=== PATIENT | female | born 1985 | race Two or more races ===

== ENCOUNTER 2025-01-30 17:30 | Outpatient (CLI) | payer MEDICAID, SELFPAY ==
[2025-01-30] VITALS (12 sets, daily range): BP systolic 111–124; BP diastolic 75–79; PULSE 83–94; RESP 18–98; TEMP 36.9; O2SAT 96–98; BMI 41.1
== END 2025-01-30 18:35 | disposition home or self-care (01) ==
LOC: S4S1 17:48 → S4SX 17:59
PROVIDERS: Referring Provider Obstetrics & Gynecology; Visit Provider Obstetrics & Gynecology
DX: Z34.83 Encounter for supervision of other normal pregnancy, third trimester (principal); Z36.89 Encounter for other specified antenatal screening; Z3A.36 36 weeks gestation of pregnancy
CPT/HCPCS: 59025

== ENCOUNTER 2025-02-10 08:47 | Outpatient (RCR) | payer MEDICAID, SELFPAY ==
--- NOTE | 2024-12-30 08:53 | XR_ITS ---
Examination: Biophysical profile, ultrasound Date and time of exam: December 30, 2024 0908 hours INDICATIONS: Diagnosis advanced maternal age, diagnosis diabetes Technique: Multiple transabdominal sonographic images of the pelvis abdomen obtained. Attention is directed to the breathing movement, gross body movement, amniotic fluid volume and tone. Findings: Amniotic fluid index 13.4 cm Total biophysical profile is 8 of 8. breathing movement is 2. Gross body movement is 2. tone is 2. Qualitative amniotic fluid volume is 2 Impression: Biophysical profile is 8 of 8.
--- NOTE | 2025-01-02 08:40 | XR_ITS ---
Examination: Biophysical profile, ultrasound Date and time of exam: January 02, 2025 0847 hours INDICATIONS: Diagnosis advanced maternal age, diagnosis gestational diabetes Technique: Multiple transabdominal sonographic images of the pelvis abdomen obtained. Attention is directed to the breathing movement, gross body movement, amniotic fluid volume and tone. Findings: Amniotic fluid index 10.5 cm Total biophysical profile is 8 of 8. breathing movement is 2. Gross body movement is 2. tone is 2. Qualitative amniotic fluid volume is 2 Impression: Biophysical profile is 8 of 8.
[2025-01-02 09:06] VITALS: BP 117/70; PULSE 84; RESP 18; TEMP 36.2
--- NOTE | 2025-01-06 08:47 | XR_ITS ---
Examination: Biophysical profile, ultrasound Date and time of exam: January 06, 2025 0857 hours INDICATIONS: Diagnosis advanced maternal age, diagnosis gestational diabetes Technique: Multiple transabdominal sonographic images of the pelvis abdomen obtained. Attention is directed to the breathing movement, gross body movement, amniotic fluid volume and tone. Findings: Amniotic fluid index 13.3 cm Total biophysical profile is 8 of 8. breathing movement is 2. Gross body movement is 2. tone is 2. Qualitative amniotic fluid volume is 2 Impression: Biophysical profile is 8 of 8.
[2025-01-06 09:20] VITALS: BP 115/70; PULSE 86; RESP 18
--- NOTE | 2025-01-09 08:44 | XR_ITS ---
Examination: Biophysical profile, ultrasound Date and time of exam: January 09, 2025 0848 hours INDICATIONS: Diagnosis gestational diabetes, diagnosis advanced maternal age complicating Technique: Multiple transabdominal sonographic images of the pelvis abdomen obtained. Attention is directed to the breathing movement, gross body movement, amniotic fluid volume and tone. Findings: Amniotic fluid index 11.1 cm Total biophysical profile is 8 of 8. breathing movement is 2. Gross body movement is 2. tone is 2. Qualitative amniotic fluid volume is 2 Impression: Biophysical profile is 8 of 8.
[2025-01-09 09:01] VITALS: BP 104/56; PULSE 90; RESP 16; TEMP 36.7
--- NOTE | 2025-01-16 08:43 | XR_ITS ---
Examination: Biophysical profile, ultrasound Date and time of exam: January 16, 2025 0853 hours INDICATIONS: Diagnosis advanced maternal age, diagnosis gestational diabetes Technique: Multiple transabdominal sonographic images of the pelvis abdomen obtained. Attention is directed to the breathing movement, gross body movement, amniotic fluid volume and tone. Findings: Amniotic fluid index 12.8 cm Total biophysical profile is 8 of 8. breathing movement is 2. Gross body movement is 2. tone is 2. Qualitative amniotic fluid volume is 2 Impression: Biophysical profile is 8 of 8.
[2025-01-16 09:26] VITALS: BP 118/83; PULSE 73; RESP 16; TEMP 36.7
--- NOTE | 2025-01-20 09:04 | XR_ITS ---
Examination: Biophysical profile, ultrasound Date and time of exam: January 20, 2025 0910 hours INDICATIONS: Diagnosis advanced maternal age, diagnosis gestational diabetes Technique: Multiple transabdominal sonographic images of the pelvis abdomen obtained. Attention is directed to the breathing movement, gross body movement, amniotic fluid volume and tone. Findings: Amniotic fluid index 11.9 cm Total biophysical profile is 8 of 8. breathing movement is 2. Gross body movement is 2. tone is 2. Qualitative amniotic fluid volume is 2 Impression: Biophysical profile is 8 of 8.
[2025-01-20 09:37] VITALS: BP 130/80; PULSE 82; RESP 16
--- NOTE | 2025-01-23 08:46 | XR_ITS ---
Examination: Biophysical profile, ultrasound Date and time of exam: January 23, 2025 0856 hours INDICATIONS: Diagnosis advanced maternal age, diagnosis gestational diabetes Technique: Multiple transabdominal sonographic images of the pelvis abdomen obtained. Attention is directed to the breathing movement, gross body movement, amniotic fluid volume and tone. Findings: Amniotic fluid index 12.4 cm Total biophysical profile is 8 of 8. breathing movement is 2. Gross body movement is 2. tone is 2. Qualitative amniotic fluid volume is 2 Impression: Biophysical profile is 8 of 8.
[2025-01-23 09:23] VITALS: BP 126/83; PULSE 81; RESP 16; TEMP 36.9
--- NOTE | 2025-01-27 09:07 | XR_ITS ---
Examination: Biophysical profile, ultrasound Date and time of exam: January 27, 2025 0920 hours INDICATIONS: Diagnosis advanced maternal age, diagnosis gestational diabetes Technique: Multiple transabdominal sonographic images of the pelvis abdomen obtained. Attention is directed to the breathing movement, gross body movement, amniotic fluid volume and tone. Findings: Amniotic fluid index 12.5 cm Total biophysical profile is 8 of 8. breathing movement is 2. Gross body movement is 2. tone is 2. Qualitative amniotic fluid volume is 2 Impression: Biophysical profile is 8 of 8.
[2025-01-27 09:51] VITALS: BP 134/94; PULSE 78; RESP 16; TEMP 36.7
[2025-01-27 11:15] LABS: Basophils # (Auto) 0.1 Thou/mm3 (0.0-0.2); Basophils % (Auto) 1 % (0-2.5); Eosinophils # (Auto) 0.2 Thou/mm3 (0.0-0.5); Eosinophils % (Auto) 2 % (0-10); Hematocrit 39.6 % (36.0-46.0); Hemoglobin 12.9 g/dL (12.0-16.0); Immature Granulocytes % (Auto) 1 % (0-0); Immature Granulocytes Auto 0.07 Thou/mm3 (0.00-0.00); Lymphocytes # (Auto) 2.8 Thou/mm3 (1.0-4.8); Lymphocytes % (Auto) 29 % (10-50); Mean Corpuscular HGB Conc 32.6 g/dl (31.0-37.0); Mean Corpuscular Hemoglobin 28.7 pg (25.0-35.0); Mean Corpuscular Volume 88 fL (80-100); Monocytes # (Auto) 1.1 Thou/mm3 (0.0-0.8); Monocytes % (Auto) 11 % (0-12); Neutrophils # (Auto) 5.4 Thou/mm3 (1.8-7.7); Neutrophils % (Auto) 56 % (37-80); Nucleated Red Blood Cell % 0 /100 WBC (0); Platelet Count 245 Thou/mm3 (140-440); RDW Standard Deviation 49.3 fL (36.4-46.3); Red Blood Count 4.49 Miln/mm3 (4.00-5.20); White Blood Count 9.6 Thou/mm3 (3.6-11.0)
[2025-01-27 11:33] LABS: Alanine Aminotransferase 15 U/L (10-49); Albumin, Serum 3.7 gm/dL (3.5-5.0); Albumin/Globulin Ratio 1.4 (1.2-2.2); Alkaline Phosphatase 118 U/L (46-116); Anion Gap 9 (7-16); Aspartate Amino Transferase 22 U/L (0-34); BUN/Creatinine Ratio 10 Ratio (12-20); Bilirubin,Total 0.2 mg/dL (0.3-1.2); Blood Urea Nitrogen 8 mg/dL (9-23); Calcium 9.5 mg/dL (8.3-10.6); Calcium (Corrected) 9.7 mg/dL (8.5-10.1); Carbon Dioxide 22.5 mMol/L (20.0-31.0); Chloride 103 mMol/L (98-107); Creatinine (Component) 0.8 mg/dL (0.6-1.3); Globulin 2.7 gm/dL (2.3-3.5); Glucose 86 mg/dL (74-106); Osmolality,Calculated 265 (275-295); Potassium 3.7 mMol/L (3.4-5.1); Sodium 134 mMol/L (136-145); Total Protein 6.4 gm/dL (5.7-8.2); eGFR > 60 See Note
[2025-01-27 11:48] LABS: Creatinine,Random Urine 61 mg/dL (30-125); Protein Total, Random Urine 11 mg/dL (1-14)
--- NOTE | 2025-01-27 12:14 | PD.LDPN ---
Documentation for date of: 01/27/25 OB Labor Progress Note Assessment and Plan Comments: Taisha is a 39yo with SIUP at 36+wk presenting to L&D for antepartum testing indicated for insulin-dependent diabetes. She notes no painful/regular ctx, no vaginal bleeding, no loss of fluid. Normal movement. No headache, vision changes, RUQ pain. She reports glucose levels have been well managed. 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 Has APFTs twice weekly. She has had regular OB care with [facility]ER[facility] Guevara and sees MFM in [place] ROS negative other than what was described above. A few diastolic bp's 90's but otherwise normotensive, afebrile General: well developed, well nourished, no acute distress, conversant Cardiac: normal heart rate Lungs: breathing without distress Abdomen: soft, gravid, non-tender, no rebound or guarding Extremities: no pain with palpation of calves NST: Reactive, +accels, no decels, mod howard [place]: no regular ctx pattern Labs: Hgb 12.9, plt 245, serum creat 0.8, AST/ALT wnl, urine p:c 0.8 BPP: Examination: Biophysical profile, ultrasound Date and time of exam: January 27, 2025 0920 hours INDICATIONS: Diagnosis advanced maternal age, diagnosis gestational diabetes Technique: Multiple transabdominal sonographic images of the pelvis abdomen obtained. Attention is directed to the breathing movement, gross body movement, amniotic fluid volume and tone. Findings: Amniotic fluid index 12.5 cm Total biophysical profile is 8 of 8. breathing movement is 2. Gross body movement is 2. tone is 2. Qualitative amniotic fluid volume is 2 Impression: Biophysical profile is 8 of 8. Assessment: Taisha is a 39yo with SIUP at 36+wk presenting to L&D for antepartum testing indicated for insulin-dependent diabetes. Reassuring status based on NST/BPP. PIH workup is negative at this time and mild range bp's resolved to normotensive. Benign exam. Plan: -Discussed reassuring findings with patient -Follow up on 01/30 for scheduled NST/BPP and will keep close eye to bp. If she has mild range bp's again at that time, would receive dx of GHTN. -Follow up with Dr. Lincoln as scheduled -Discussed return precautions. Kelsea Gomez MD
--- NOTE | 2025-01-30 18:41 | PD.LDNST ---
Documentation for date of: 01/30/25 Antepartum Testing Patient Information Reason for Test: GDM ON INSULIN, AMA EDC: 02/22/25 Gestational Age (weeks): 36 Gestational Age (days): 2 : 4 Para: 2 Date of Last Test: 01/23/25 Last Oral Intake: ATE AT 07:50 Clincal Data Temperature: 98.0 F Blood Pressure: 134/94 Respiratory Rate: 16 Pulse Rate: 78 Non-Stress Test Baseline FHR: 135 Non-Stress Test Result: Reactive Non-Stress Test Comment: PT HERE FOR SCHEDULED BPP/NST. PT REPORTS MOVEMENT AT THIS TIME. DENIES PAIN, NO BLEEDING, NO LEAKING OF FLUID. PLACED ON EFM X 2. ABD SOFT TO PALPATION. MOVEMENT PALPATED WHILE PLACING MONITOR PARTS. DR WHITE CALLED WITH BPP RESULTS, REACTIVE NST AND SERIAL BP'S. ORDERS REC'D. PLAN OF CARE DISCUSSED WITH PT. 11:58: DR WHITE CALLED WITH SERIAL BP'S AND LAB RESULTS. WILL COME OVER TO SEE PT. UPDATE GIVEN TO PT. 12:07: DR WHITE AT BEDSIDE. DISCHARGE ORDERS REC'D. PT OFF EFM X 2. PT ADVISED OF NEXT SCHEDULED APPT. KICK COUNTS REVIEWED. OUT TO PRIVATE AUT[facility] IN STABLE COND. 39 YRS G-4, P-2 ANTEPARTUM EVALUATION FOR AMA AND GDM. MORNING GLUCOSE = 79 NST = REACTIVE, BP = WNL, DTR= 2+ /4, NO PEDAL EDEMA. DISCHARGE HOME DR. PEDRO Follow-Up Reschedule Date: 01/30/25 Reschedule Time: 09:00 US Results BPP: 04/18 MITCHEL: 12.5
[2025-01-30 18:45] VITALS: BP 134/94; PULSE 78; RESP 16; TEMP 36.7
--- NOTE | 2025-02-06 08:48 | XR_ITS ---
Examination: Biophysical profile, ultrasound Date and time of exam: February 06, 2025 0852 hours INDICATIONS: Diagnosis advanced maternal age, diagnosis gestational diabetes Technique: Multiple transabdominal sonographic images of the pelvis abdomen obtained. Attention is directed to the breathing movement, gross body movement, amniotic fluid volume and tone. Findings: Amniotic fluid index 12.2 cm Total biophysical profile is 8 of 8. breathing movement is 2. Gross body movement is 2. tone is 2. Qualitative amniotic fluid volume is 2 Impression: Biophysical profile is 8 of 8.
[2025-02-06 09:18] VITALS: BP 128/85; PULSE 73; RESP 16; TEMP 36.7
--- NOTE | 2025-02-10 09:08 | XR_ITS ---
Examination: Biophysical profile, ultrasound Date and time of exam: February 10, 2025 0911 hours INDICATIONS: Diagnosis advanced maternal age, diagnosis gestational diabetes Technique: Multiple transabdominal sonographic images of the pelvis abdomen obtained. Attention is directed to the breathing movement, gross body movement, amniotic fluid volume and tone. Findings: Amniotic fluid index 18.2 cm Total biophysical profile is 8 of 8. breathing movement is 2. Gross body movement is 2. tone is 2. Qualitative amniotic fluid volume is 2 Impression: Biophysical profile is 8 of 8.
[2025-02-10 09:43] VITALS: BP 123/79; PULSE 77; RESP 16; TEMP 36.7
--- NOTE | 2025-02-13 08:48 | XR_ITS ---
Examination: Biophysical profile, ultrasound Date and time of exam: February 13, 2025 0916 hours INDICATIONS: Diagnosis advanced maternal age, diagnosis gestational diabetes Technique: Multiple transabdominal sonographic images of the pelvis abdomen obtained. Attention is directed to the breathing movement, gross body movement, amniotic fluid volume and tone. Findings: Amniotic fluid index 18.3 cm Total biophysical profile is 8 of 8. breathing movement is 2. Gross body movement is 2. tone is 2. Qualitative amniotic fluid volume is 2 Impression: Biophysical profile is 8 of 8.
[2025-02-13 10:02] VITALS: BP 136/86; PULSE 72; RESP 16; TEMP 36.7
== END 2025-02-10 23:59 | disposition home or self-care (01) ==
LOC: S4S1 08:47
PROVIDERS: Obstetrics & Gynecology; PCP Family Medicine; Referring Provider Nurse Practitioner Women's Health; Visit Provider Nurse Practitioner Women's Health
DX: O24.415 Gestational diabetes mellitus in pregnancy, controlled by oral hypoglycemic drugs (principal); O24.414 Gestational diabetes mellitus in pregnancy, insulin controlled; Z3A.38 38 weeks gestation of pregnancy; O09.523 Supervision of elderly multigravida, third trimester; O99.213 Obesity complicating pregnancy, third trimester; E66.9 Obesity, unspecified
CPT/HCPCS: 36415; 59025; 76819; 80053; 82570; 82575; 84156; 85025

== ENCOUNTER 2025-02-15 16:51 | Inpatient (IN) | payer MEDICAID, SELFPAY ==
[2024-12-30 10:05] VITALS: BP 139/74; PULSE 75; RESP 16; TEMP 36.9
[2025-02-15] VITALS (13 sets, daily range): BP systolic 119–155; BP diastolic 74–94; PULSE 72–93; RESP 18; TEMP 36.5–36.7; BMI 41.7
--- NOTE | 2025-02-15 17:32 | XR_ITS ---
Examination: age completely TECHNIQUE: Complete transabdominal sonographic images pelvis Date and time: February 15, 2025 1804 hours INDICATIONS: Preinduction, unknown presentation size and dates FINDINGS: Viable intrauterine gestation cephalic presentation Cardiac motion 148 bpm Placenta anterior grade 3 Umbilical cord insertion seen Amniotic fluid index 17.1 cm spine anterior Cervix ovaries obscured by the gestation Estimated gestational age 38 weeks 5 days, estimated weight 3476.8 g IMPRESSION: Viable intrauterine gestation in cephalic presentation
--- NOTE | 2025-02-15 17:33 | XR_ITS ---
Examination: Biophysical profile, ultrasound Date and time of exam: February 15, 2025 1813 hours INDICATIONS: Diagnosis gestational diabetes Technique: Multiple transabdominal sonographic images of the pelvis abdomen obtained. Attention is directed to the breathing movement, gross body movement, amniotic fluid volume and tone. Findings: Amniotic fluid index 14.4 cm Total biophysical profile is 8 of 8. breathing movement is 2. Gross body movement is 2. tone is 2. Qualitative amniotic fluid volume is 2 Impression: Biophysical profile is 8 of 8.
[2025-02-15 18:30] LABS: Fibrinogen 389 mg/dL (175-375); INR 0.9 (0.9-1.3); Partial Thromboplastin Time 21.2 Seconds (22.0-36.0); Prothrombin Time 10.3 Seconds (9.0-12.2)
[2025-02-15 18:36] LABS: Alanine Aminotransferase 17 U/L (10-49); Albumin, Serum 3.9 gm/dL (3.5-5.0); Albumin/Globulin Ratio 1.6 (1.2-2.2); Alkaline Phosphatase 146 U/L (46-116); Anion Gap 12 (7-16); BUN/Creatinine Ratio 14 Ratio (12-20); Bilirubin,Total < 0.2 mg/dL (0.3-1.2); Blood Urea Nitrogen 14 mg/dL (9-23); Calcium 9.2 mg/dL (8.3-10.6); Calcium (Corrected) 9.3 mg/dL (8.5-10.1); Carbon Dioxide 18.2 mMol/L (20.0-31.0); Chloride 108 mMol/L (98-107); Globulin 2.5 gm/dL (2.3-3.5); Glucose 134 mg/dL (74-106); Osmolality,Calculated 278 (275-295); Potassium 4.3 mMol/L (3.4-5.1); Sodium 138 mMol/L (136-145); Total Protein 6.4 gm/dL (5.7-8.2); Uric Acid 7.5 mg/dL (3.1-7.8); eGFR > 60 See Note
[2025-02-15 18:39] LABS: Collection Type, Urine Clean Catch
[2025-02-15 18:45] LABS: Amphetamine/Metham Scrn,Ur OB Negative (Negative); Benzoylecgonine Screen, Ur OB Negative (Negative); Creatinine,Random Urine 207 mg/dL (30-125); Opiate Screen,Urine OB Negative (Negative); Protein Total, Random Urine 45 mg/dL (1-14); THC Screen,Urine OB Negative (Negative)
[2025-02-15] MEDS: RINGERS LACTATED 1000 ML 1,000 ML 100 ML IV (18:48)
[2025-02-15 18:49] LABS: Syphilis Nonreactive (Nonreactive)
[2025-02-15 18:53] LABS: Bacteria,Urine 1+; Bilirubin,Urine Negative (Negative); Blood,Urine Negative (Negative); Clarity,Urine Clear (Clear/Hazy); Color,Urine Yellow (Lt Yel-Yel); Glucose, Urine Negative (Negative); Ketones,Urine Trace (Negative); Leukocyte Esterase,Urine Positive (Negative); Nitrite,Urine Negative (Negative); Protein,Urine 1+ (Neg - Trace); RBC,Urine 1 /hpf (0-3); Specific Gravity,Urine 1.031 (1.001-1.035); Squamous Epithelial Cell,Urine 19 /hpf (0-5); Urobilinogen,Urine Negative mg/dL (0.0-1.0); WBC,Urine 14 /hpf (0-5)
--- NOTE | 2025-02-15 18:55 | PD.LDHP ---
Documentation for date of: 02/15/25 OB Labor/Induct. HPI History of Present Illness Chief complaint: Induction of labor for gestational diabetes requiring insulin : 4 Para: 2 Term pregnancies: 2 pregnancies: 0 Living children: 2 History of Abortions: Spontaneous and Elective: 1 History of sections: No History of : No Date of last menstrual period: 05/18/24 JOSE MARIA: 02/22/25 Gestational Age (weeks): 39 Gestational Age (days): 0 Gestational age based on last menstrual period: 39 Indication for induction: medical complication (Gestational diabetes requiring insulin, AMA) History of present illness: Patient is a 39-year-old -0-1-2 at 39 weeks who presents for scheduled induction of labor. She she is status post vaginal delivery x 2 in the past, the last baby was born in 2012. She had a termination in 2022. She is a patient of [facility]. She was scheduled for an induction of labor today for gestational diabetes requiring insulin and AMA. The patient is also morbidly obese with a BMI of 42. The patient was positive for methamphetamines on her first visit at about [address] [facility]. A drug screen is pending. History of Present Dating criteria: LMP confirmed by 1st trimester US Adequate Care: Yes Ultrasounds: normal 1st trimester US and normal mid trimester US Obstetrical complications: gestational diabetes (Requiring insulin) and other Medical complications: other (Advanced maternal age, positive drug screen for methamphetamines on her first OB visit morbid obesity with a BMI of 42) Labs Maternal Blood Type: A Pos Labs: Positive: Rubella Titre and Group Beta Strep and Negative: RPR, Hepatitis B, HIV, Chlamydia and Gonorrhea Past Medical History Surgical History SURGICAL: Negative Section Meds Home Medications and Allergies Home Medications ?Medication ?Instructions ?Recorded ?Confirmed ?Type folic acid 1 mg tablet 1 mg PO QDAY 01/30/25 02/15/25 History vits no.130-ferrous fum 1 tab PO QDAY 01/30/25 02/15/25 History 27 mg iron-folic acid 800 mcg tablet ( Vitamin) Allergies Allergy/AdvReac Type Severity Reaction Status Date / Time No Known Allergies Allergy Verified 02/15/25 17:13 OB Exam Physical Exam Vital signs: Temp Pulse Resp BP 98.4 F 72 16 129/74 12/30/24 10:05 02/15/25 18:51 12/30/24 10:05 02/15/25 18:51 Detailed Labor and Delivery Exam Effacement (%): 60 Cervix position: posterior station: -2 Consistency: medium Presentation: Vertex Membranes: intact Baseline heart rate: 140 monitor accelerations: 15x15 monitor decelerations: None FPC variability: Moderate (11-25) Contraction frequency (min): Irregular Contraction intensity: Mild OB Results Labs 02/15/25 17:52 02/15/25 17:52 Labs: BMP 02/15/25 17:52 Sodium 138 Potassium 4.3 Chloride 108 H Carbon Dioxide 18.2 L BUN 14 Creatinine 1.0 Glucose 134 H Calcium 9.2 Liver Function 02/15/25 Range/Units 17:52 Total Bilirubin < 0.2 L (0.3-1.2) mg/dL ALT 17 (10-49) U/L Alkaline Phosphatase 146 H (46-116) U/L Albumin 3.9 (3.5-5.0) gm/dL Urine 02/15/25 Range/Units 18:05 Urine Color Yellow (Lt Yel-Yel) Urine Clarity Clear (Clear/Hazy) Urine pH 6.0 (5.0-7.0) Ur Specific Reading 1.031 (1.001-1.035) Urine Protein 1+ A (Neg - Trace) Urine Glucose (UA) Negative (Negative) OB Assessment & Plan Assessment and Plan (1) Supervision of high risk in third trimester: Status: Acute (2) Advanced maternal age (AMA) in : Status: Acute (3) Morbid obesity with BMI of 40.0-44.9, adult: Status: Acute (4) Gestational diabetes mellitus (GDM) requiring insulin: Status: Acute Assessment and plan: For Cytotec induction of labor (5) Mother positive for group B Streptococcus colonization: Status: Acute Assessment and plan: Ampicillin started. Additional Plan Induction method: per misoprostol protocol Plan: induction, anticipate NVD and GBS prophylaxis tx
[2025-02-15 19:08] LABS: Basophils # (Auto) 0.1 Thou/mm3 (0.0-0.2); Basophils % (Auto) 1 % (0-2.5); Eosinophils # (Auto) 0.1 Thou/mm3 (0.0-0.5); Eosinophils % (Auto) 1 % (0-10); Hematocrit 38.4 % (36.0-46.0); Immature Granulocytes % (Auto) 1 % (0-0); Immature Granulocytes Auto 0.07 Thou/mm3 (0.00-0.00); Lymphocytes # (Auto) 2.5 Thou/mm3 (1.0-4.8); Lymphocytes % (Auto) 28 % (10-50); Mean Corpuscular HGB Conc 33.9 g/dl (31.0-37.0); Mean Corpuscular Hemoglobin 29.5 pg (25.0-35.0); Mean Corpuscular Volume 87 fL (80-100); Monocytes # (Auto) 0.9 Thou/mm3 (0.0-0.8); Monocytes % (Auto) 9 % (0-12); Neutrophils # (Auto) 5.5 Thou/mm3 (1.8-7.7); Neutrophils % (Auto) 60 % (37-80); Nucleated Red Blood Cell % 0 /100 WBC (0); Platelet Count 235 Thou/mm3 (140-440); Red Blood Count 4.41 Miln/mm3 (4.00-5.20); White Blood Count 9.1 Thou/mm3 (3.6-11.0)
[2025-02-15] MEDS: Ampicillin Inj 2,000 MG in SODIUM CHLORIDE 0.9% (POP) 100 ML 100 MG IV (19:15)
[2025-02-15] MEDS: MISOPROSTOL 50 mCg TABLET PO (19:45)
[2025-02-15] MEDS: INSULIN GLARGINE (Lantus) 5 UNIT/0.05 ML (PER 5 UNITS) SC (21:05)
[2025-02-15] MEDS: Ampicillin Inj 1,000 MG in SODIUM CHLORIDE 0.9% (Popper) 50 ML 50 MG IV (23:30)
[2025-02-16] VITALS (139 sets, daily range): BP systolic 89–203; BP diastolic 54–118; PULSE 68–139; RESP 14–19; TEMP 36.6–36.8; O2SAT 82–100
[2025-02-16] MEDS: Ampicillin Inj 1,000 MG in SODIUM CHLORIDE 0.9% (Popper) 50 ML 50 MG IV ×3 (04:00→12:09)
[2025-02-16] MEDS: MISOPROSTOL 50 mCg TABLET PO ×2 (04:15)
[2025-02-16] MEDS: fentaNYL CIT INJ 50 mCg/ML AMP 2ML 100 MCG IVP ×2 (07:21→17:45)
[2025-02-16] MEDS: NIFEdipine XL 30 MG TABCR PO (08:23)
[2025-02-16] MEDS: INSULIN GLARGINE (Lantus) 5 UNIT/0.05 ML (PER 5 UNITS) 10 UNIT SC (08:24)
--- NOTE | 2025-02-16 09:32 | PD.LDPN ---
Documentation for date of: 02/16/25 OB Labor Progress Note Pain Control Comments: Contractions getting pretty painful. Status post 3 doses of oral Cytotec. Patient desires epidural Pelvic Exam Dilation (cm): 4 Effacement (%): 80 station: -2 Amniotic membrane status: Ruptured Comments: IUPC placed at approximately 7:30 in the morning. Contractions Monitor mode: Internal Contraction frequency: 3 Contraction intensity: Moderate Status status: Category l Assessment and Plan Assessment: active labor Plan OB labor note: begin Pitocin augmentation
[2025-02-16] MEDS: RINGERS LACTATED 1000 ML 1,000 ML 100 ML IV ×3 (10:16→23:56)
[2025-02-16] MEDS: OXYTOCIN in NS 30 units 30 UNIT/500 ML BAG IV (11:09)
[2025-02-16] MEDS: ONDANSETRON INJ 2 MG/ML INJ 2 ML 4 MG IVP (12:09)
--- NOTE | 2025-02-16 13:22 | PD.LDPN ---
Documentation for date of: 02/16/25 OB Labor Progress Note Pain Control Pain control: epidural Comments: Patient is a 39-year-old -0-1-2 at 39 and 1 admitted for an induction of labor secondary to gestational diabetes on insulin. Patient is resting comfortable with epidural in place and is requesting a at this time. Patient states she just does not want to labor anymore and requests a . She has been 6 cm for the past 3 to 4 hours. Her contractions are not adequate on Pitocin but patient declines further labor at this time. She was consented for the risk of a primary including the risk of bleeding infection blood transfusion damage to bowel, bladder, blood vessels, other organs, prolonged hospital stay, and further surgery should any above occur. All questions were answered all consents were signed. Pelvic Exam Dilation (cm): 6 Effacement (%): 80 station: -1 Amniotic membrane status: Ruptured Contractions Monitor mode: Internal Contraction frequency: 2-4 Contraction intensity: Moderate Status status: Category l Assessment and Plan Pitocin rate (mU/min): 2 Assessment: active labor Plan OB labor note:
[2025-02-16] MEDS: FAMOTIDINE INJ 10 MG/ML VIAL 2 ML 20 MG IVP (13:34)
[2025-02-16] MEDS: ceFAZolin/D5W 2 GM IV 2 GM/100 ML BAG IV (13:35)
--- NOTE | 2025-02-16 15:04 | PD.GYNPROC ---
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 All care with [facility]. The first baby was 6 pounds and the second baby was 8 pounds 13 ounces. Her last baby was born in 2012. The patient was being induced for AMA and gestational diabetes requiring insulin. Despite 3 doses of oral Cytotec and Pitocin augmentation, the patient failed to make progress past 6 cm for about 3 to 4 hours and requested a primary . She declined further attempts at induction of labor. Pre-Op diagnosis: 1. Intrauterine at 39 weeks 2. Gestational diabetes requiring insulin 3. Maternal BMI of 42 4. Chronic hypertension 5. Arrest of dilation Post-Op diagnosis: Same Anesthesia type: Epidural (Bolused epidural) Procedure description: After obtaining informed consent, the patient was brought back to the operating room and her epidural was bolused to obtain excellent anesthesia. She was then prepped and draped in the dorsal supine position with a leftward tilt in a normal sterile fashion. The patient had a Byrne catheter in place which was inserted into her bladder during labor. The patient was given 2 g of Ancef and 250 mg of azithromycin IV prior to incision. A Pfannenstiel skin incision was made with a scalpel and carried down to the underlying fascia. The fascia was incised in the midline and the fascial incision extended laterally using Beltre scissors. The superior aspect the fascia was grasped with Raymundo clamps, and the underlying rectus muscles dissected off using blunt and sharp dissection. This was repeated in the inferor aspect the incision. The rectus muscles were in the midline, and the peritoneum was picked up and entered bluntly with the surgeon's fingers. This was extended superiorly and inferiorly with good visualization of the bladder. The bladder blade was inserted and the uterus was incised in low transverse fashion above the bladder reflection. The uterine incision was extended laterally using blunt dissection with the surgeon's fingers. The bag noonan was ruptured, and clear fluid was noted. The bladder blade was removed and the infant was delivered in a direct occiput posterior position atraumatically. The cord was clamped and cut and the infant was handed off to the waiting pediatric staff. Cord blood was sent. Cord gases were saved. The placenta was then manually removed and the uterus was exteriorized and cleared of all clots and debris. The uterine incision was repaired using 0 Monocryl in a running locked fashion. A couple of [id number] sutures were used to obtain excellent hemostasis. The uterus was returned to the patient's abdominal cavity and copious irrigation carried out with warm normal saline. The uterine incision was reexamined and noted to be hemostatic. After ensuring the rectus muscles were hemostatic, these were reapproximated in the midline with the peritoneum in a running fashion using 0 Monocryl. The fascia was closed with 0 Vicryl in a running fashion. The subcutaneous tissues were irrigated and found to be hemostatic. These were reapproximated with running suture of 2-0 plain. The skin was closed with a subcuticular suture of 4-0 Monocryl. The patient tolerated the procedure well. Sponge, lap, needle, and instrument counts were correct x 2. The patient went to the recovery area awake and in stable condition. Of note the baby was with mom and dad in recovery in stable condition. Fluids: crystalloid Fluid amount (mL): 1,200 Urine output (mL): 75 Specimen: none Implants: None Estimated blood loss (ml): 700 Findings: Liveborn female in direct OP presentation with no nuchal cord no meconium the baby did have a true knot in the cord x 1. Apgars were 9 and 9 weight was 7 pounds 12 ounces. The placenta was complete spontaneous grossly normal. The patient's uterus, tubes, and ovaries appeared grossly normal. Complications: none Surgical staff Anesthesia: Castro Fletcher CRNA Coke Inspector: Shaka NAVA Diagnosis Discharge Diagnosis (1) Mother positive for group B Streptococcus colonization: Status: Acute (2) Gestational diabetes mellitus (GDM) requiring insulin: Status: Acute (3) Morbid obesity with BMI of 40.0-44.9, adult: Status: Acute (4) Advanced maternal age (AMA) in : Status: Acute (5) Supervision of high risk in third trimester: Status: Acute Problem List Completed Was Problem List Reviewed/Reconciled?: Yes
--- NOTE | 2025-02-16 15:19 | OBDSUM_ITS ---
Data (Vital) Data Hx Section: No Reason for Primary Section: Arrest of dilation Maternal Blood Type: A Pos Rubella Titre: Positive RPR: Non-reactive Labs: Positive: Group Beta Strep and Negative: RPR, Hepatitis B, HIV, Chlamydia and Gonorrhea : 4 Term: 2 : 0 Livin Abortions: Spontaneous & Theraputic: 1 Delivery Data (Vital) Labor Data Initiation of labor: Induction Induction/Augmentation Agent: Cytotec-PO and Pitocin ROM date: 02/16/25 ROM time: 04:25 Amniotic membrane rupture type: Spontaneous Amniotic fluid description: Clear Delivery Data EDC: 02/22/25 EDC calculated by:: LMP/early US confirmation Date of arrival to unit: 02/15/25 Time of arrival to unit: 17:00 Onset of labor date: 02/16/25 Onset of labor time: 04:30 Seeley delivery date: 02/16/25 Seeley delivery time: 14:12 Gestational age (weeks): 39 Gestational age (days): 1 Placenta delivery date: 02/16/25 Placenta delivery time: 14:13 Delivered by: Catalina Lazar ([facility]) Entry Level Accountant at delivery: No Support person(s) at delivery: fob Delivery Method Delivery method: Low Transverse Presentation: Vertex position: OP Anesthesia Type Anesthesia Type: Epidural Anesthesia type: Epidural (Bolused epidural) Placenta Placenta delivery description: Manual Removal Cord blood sent to lab: Yes cord blood collection: Cord Blood Type EBL Estimated blood loss (ml): 700 Umbilical Cord cord description: 3 Vessels and True Knot Additional Procedures See op report for further details Complications Complications: None Data (Vital) Seeley Data 's gender: Female weight (gms): 3515.341 g 1 minute: 9 5 minutes: 9
[2025-02-16] MEDS: OXYTOCIN in NS 20 units 20 UNIT/1,000 ML BAG 125 UNIT IV (15:26)
[2025-02-16 16:31] LABS: Basophils # (Auto) 0.1 Thou/mm3 (0.0-0.2); Basophils % (Auto) 0 % (0-2.5); Eosinophils # (Auto) 0.1 Thou/mm3 (0.0-0.5); Eosinophils % (Auto) 0 % (0-10); Hematocrit 31.2 % (36.0-46.0); Hemoglobin 10.9 g/dL (12.0-16.0); Immature Granulocytes % (Auto) 1 % (0-0); Immature Granulocytes Auto 0.17 Thou/mm3 (0.00-0.00); Lymphocytes % (Auto) 4 % (10-50); Mean Corpuscular HGB Conc 34.9 g/dl (31.0-37.0); Mean Corpuscular Hemoglobin 29.6 pg (25.0-35.0); Mean Corpuscular Volume 85 fL (80-100); Monocytes # (Auto) 1.4 Thou/mm3 (0.0-0.8); Monocytes % (Auto) 5 % (0-12); Neutrophils % (Auto) 90 % (37-80); Nucleated Red Blood Cell % 0 /100 WBC (0); Platelet Count 204 Thou/mm3 (140-440); RDW Standard Deviation 48.9 fL (36.4-46.3); Red Blood Count 3.68 Miln/mm3 (4.00-5.20); White Blood Count 25.7 Thou/mm3 (3.6-11.0)
[2025-02-16 16:54] LABS: Alanine Aminotransferase 12 U/L (10-49); Albumin, Serum 2.9 gm/dL (3.5-5.0); Albumin/Globulin Ratio 1.4 (1.2-2.2); Alkaline Phosphatase 117 U/L (46-116); Anion Gap 14 (7-16); BUN/Creatinine Ratio 11 Ratio (12-20); Bilirubin,Total 0.4 mg/dL (0.3-1.2); Blood Urea Nitrogen 14 mg/dL (9-23); Calcium 7.8 mg/dL (8.3-10.6); Calcium (Corrected) 8.7 mg/dL (8.5-10.1); Carbon Dioxide 19.1 mMol/L (20.0-31.0); Chloride 107 mMol/L (98-107); Creatinine (Component) 1.3 mg/dL (0.6-1.3); Estimated Creatinine Clearance 63.1 mL/min (>60); Globulin 2.1 gm/dL (2.3-3.5); Glucose 155 mg/dL (74-106); Osmolality,Calculated 282 (275-295); Potassium 4.4 mMol/L (3.4-5.1); Sodium 140 mMol/L (136-145); eGFR 54 See Note
[2025-02-16 18:23] LABS: Lactate (Lactic Acid) 3.1 mMol/L (0.4-2.0)
--- NOTE | 2025-02-16 18:30 | PC.NURSE ---
Dr. Lazar made aware of cbc, cmp and lactic acid, no new orders
--- NOTE | 2025-02-16 19:20 | PC.NURSE ---
Per Dr Lazar, leave aly catheter in place until 02/17/2025 am.
[2025-02-16] MEDS: ACETAMINOPHEN IVPB 1,000 MG/100 ML VIAL 250 MG IV (20:22)
--- NOTE | 2025-02-16 21:20 | PC.NURSE ---
02/16/2025@ 2012 Epidural catheter noted to posterior upper shoulder while completing assessment, Charge nurse made aware.
[2025-02-16 21:21] LABS: Reflex Lactate? Y
[2025-02-16 21:43] LABS: Lactic Acid, 3 HR 2.7 mMol/L (0.4-2.0)
[2025-02-16] MEDS: KETOROLAC INJ 30 MG/ML VIAL IVP (23:57)
[2025-02-17] VITALS (7 sets, daily range): BP systolic 109–121; BP diastolic 72–78; PULSE 88–105; RESP 16–20; TEMP 36.6–37; O2SAT 97–100
[2025-02-17 05:52] LABS: Basophils # (Auto) 0.1 Thou/mm3 (0.0-0.2); Basophils % (Auto) 0 % (0-2.5); Eosinophils % (Auto) 0 % (0-10); Hematocrit 25.1 % (36.0-46.0); Immature Granulocytes % (Auto) 1 % (0-0); Immature Granulocytes Auto 0.09 Thou/mm3 (0.00-0.00); Lymphocytes # (Auto) 2.4 Thou/mm3 (1.0-4.8); Lymphocytes % (Auto) 14 % (10-50); Mean Corpuscular HGB Conc 33.9 g/dl (31.0-37.0); Mean Corpuscular Hemoglobin 29.1 pg (25.0-35.0); Mean Corpuscular Volume 86 fL (80-100); Monocytes # (Auto) 1.2 Thou/mm3 (0.0-0.8); Monocytes % (Auto) 7 % (0-12); Neutrophils # (Auto) 13.5 Thou/mm3 (1.8-7.7); Neutrophils % (Auto) 78 % (37-80); Nucleated Red Blood Cell % 0 /100 WBC (0); Platelet Count 174 Thou/mm3 (140-440); RDW Standard Deviation 49.7 fL (36.4-46.3); Red Blood Count 2.92 Miln/mm3 (4.00-5.20); White Blood Count 17.2 Thou/mm3 (3.6-11.0)
[2025-02-17] MEDS: KETOROLAC INJ 30 MG/ML VIAL IVP (06:09)
[2025-02-17 06:16] LABS: Hemoglobin 8.5 g/dL (12.0-16.0)
[2025-02-17 06:25] LABS: Anion Gap 11 (7-16); BUN/Creatinine Ratio 12 Ratio (12-20); Blood Urea Nitrogen 12 mg/dL (9-23); Calcium 7.7 mg/dL (8.3-10.6); Chloride 109 mMol/L (98-107); Glucose 93 mg/dL (74-106); Osmolality,Calculated 282 (275-295); Potassium 4.1 mMol/L (3.4-5.1); Sodium 142 mMol/L (136-145); eGFR > 60 See Note
[2025-02-17] MEDS: ACETAMINOPHEN IVPB 1,000 MG/100 ML VIAL 250 MG IV (08:16)
[2025-02-17] MEDS: NIFEdipine XL 30 MG TABCR PO (08:17)
[2025-02-17] MEDS: RINGERS LACTATED 1000 ML 1,000 ML 100 ML IV (08:17)
[2025-02-17] MEDS: ENOXAPARIN SOD INJ 40 MG/0.4 ML SYRINGE SC (08:18)
[2025-02-17] MEDS: INSULIN GLARGINE (Lantus) 5 UNIT/0.05 ML (PER 5 UNITS) 10 UNIT SC (08:19)
[2025-02-17 08:53] LABS: Basophils # (Auto) 0.1 Thou/mm3 (0.0-0.2); Basophils % (Auto) 0 % (0-2.5); Eosinophils % (Auto) 0 % (0-10); Hematocrit 25.7 % (36.0-46.0); Immature Granulocytes % (Auto) 1 % (0-0); Immature Granulocytes Auto 0.12 Thou/mm3 (0.00-0.00); Lymphocytes # (Auto) 2.3 Thou/mm3 (1.0-4.8); Lymphocytes % (Auto) 14 % (10-50); Mean Corpuscular HGB Conc 33.9 g/dl (31.0-37.0); Mean Corpuscular Hemoglobin 29.9 pg (25.0-35.0); Mean Corpuscular Volume 88 fL (80-100); Monocytes % (Auto) 6 % (0-12); Neutrophils # (Auto) 13.4 Thou/mm3 (1.8-7.7); Neutrophils % (Auto) 79 % (37-80); Nucleated Red Blood Cell % 0 /100 WBC (0); Platelet Count 168 Thou/mm3 (140-440); RDW Standard Deviation 51.1 fL (36.4-46.3); Red Blood Count 2.91 Miln/mm3 (4.00-5.20); White Blood Count 16.9 Thou/mm3 (3.6-11.0)
[2025-02-17 09:26] LABS: Hemoglobin 8.7 g/dL (12.0-16.0)
[2025-02-17 09:29] LABS: Alanine Aminotransferase 11 U/L (10-49); Albumin, Serum 2.7 gm/dL (3.5-5.0); Albumin/Globulin Ratio 1.6 (1.2-2.2); Alkaline Phosphatase 95 U/L (46-116); Anion Gap 10 (7-16); BUN/Creatinine Ratio 13 Ratio (12-20); Bilirubin,Total 0.3 mg/dL (0.3-1.2); Blood Urea Nitrogen 10 mg/dL (9-23); Calcium 8.2 mg/dL (8.3-10.6); Calcium (Corrected) 9.2 mg/dL (8.5-10.1); Carbon Dioxide 21.2 mMol/L (20.0-31.0); Chloride 107 mMol/L (98-107); Creatinine (Component) 0.8 mg/dL (0.6-1.3); Estimated Creatinine Clearance 102.5 mL/min (>60); Globulin 1.7 gm/dL (2.3-3.5); Glucose 118 mg/dL (74-106); Osmolality,Calculated 275 (275-295); Potassium 4.1 mMol/L (3.4-5.1); Sodium 138 mMol/L (136-145); Total Protein 4.4 gm/dL (5.7-8.2); eGFR > 60 See Note
--- NOTE | 2025-02-17 09:33 | ESPR_ITS ---
RE: GALE TROY : 1985 DATE OF SERVICE: 02/17/2025 SUBJECTIVE: Postoperative day #1, the patient reports dizziness. She denies any excessive vaginal bleeding. She denies any nausea or vomiting. She is tolerating her diet. She denies passing flatus. Her urine output is adequate with Byrne catheter in place. OBJECTIVE: Vital Signs: Blood pressure 118/75, heart rate 105 respirations 18, temperature 98.6. Lungs: Clear to auscultation bilaterally. Heart: Tachycardic, but regular rhythm. Abdomen: Mild gaseous distention. Dressing dry and intact. Fundus is firm. Extremities: Nontender. LABORATORY DATA: Hemoglobin pre-delivery is 10.9, post-delivery is 8.5. ASSESSMENT: Postop day #1, status post delivery with dizziness and tachycardia. PLAN: Repeat CBC. Keep the patient in bed until symptoms improve and vital signs are stable for ambulation and check CBC. DT: 09:04:12 TT: 09:32:00 Ref: [id number] - TID: [id number]
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
[2025-02-17] MEDS: HYDROmorphone INJ 2 MG/ML VIAL IVP (22:35)
[2025-02-18 04:49] VITALS: BP 109/75; PULSE 88; RESP 19; TEMP 36.5; O2SAT 96
[2025-02-18 08:50] VITALS: BP 118/77; PULSE 88; RESP 18; TEMP 36.6; O2SAT 98
[2025-02-18] MEDS: ENOXAPARIN SOD INJ 40 MG/0.4 ML SYRINGE SC (09:00)
[2025-02-18] MEDS: KETOROLAC INJ 30 MG/ML VIAL IVP (09:00)
[2025-02-18 09:01] VITALS: BP 118/77; PULSE 88
[2025-02-18] MEDS: NIFEdipine XL 30 MG TABCR PO (09:01)
--- NOTE | 2025-02-18 10:46 | PD.LDPPPRG ---
Subjective Subjective Interval history: Delivery type: Patient doing well this morning. No acute complaints. Ambulating, tolerating p.o. and voiding without difficulty. HTN/Pre-Eclampsia screen: No chest pain, shortness of breath, headache, visual changes, epigastric or right upper quadrant pain. Breast-feeding, lochia diminishing. Bowel: Flatus+/ BM+ Exam Vital Signs Temp Pulse Resp BP Pulse Ox O2 Del Method 98 F 88 18 118/77 98 Room Air 02/18/25 08:50 02/18/25 09:01 02/18/25 08:50 02/18/25 09:01 02/18/25 08:50 02/18/25 08:50 Constitutional Constitutional: no acute distress Routine HEENT Exam Head: Present normocephalic and atraumatic Eye: Present EOMI and PERRL ENT: Present mucous membranes moist Routine Neck Exam Neck: Present supple and trachea midline Routine Respiratory Exam Respiratory: Present chest non-tender, lungs clear, normal breath sounds and no resp distress Routine Cardiovascular Exam Cardiovascular: Present RRR Routine Abdominal Exam Abdominal: Present soft and normoactive bowel sounds Routine Extremities Exam Extremities: Present full ROM Routine Skin Exam Skin: Present intact, dry and warm Routine Neurological Exam Neurological: Present alert, oriented X3 and CN II-XII intact Routine Psychiatric Exam Psychiatric: Present normal affect and normal thought process Objective Labs 02/17/25 08:27 02/17/25 08:27 Assessment & Plan Problem List (1) Mother positive for group B Streptococcus colonization: Status: Acute (2) Gestational diabetes mellitus (GDM) requiring insulin: Status: Acute (3) Morbid obesity with BMI of 40.0-44.9, adult: Status: Acute (4) Advanced maternal age (AMA) in : Status: Acute (5) Supervision of high risk in third trimester: Status: Acute (6) delivery delivered: Status: Acute Assessment and plan: PPD/POD#2 1. Continue routine care 2. Transition to PO meds. 3. Encourage to ambulate/ breast-feed 4. Anticipate discharge home today. Time Spent With Patient Time: Total time spent is greater than 50% in coordination of care (as documented) at patient's floor/unit and/or counseling patient:
--- NOTE | 2025-02-18 10:47 | PD.LDDS ---
DS: Providers Provider Date of admission: 02/15/25 16:51 Primary care physician: Physician No Primary/Family Admitting Provider: [facility]ina [facility] ([facility]) Attending Provider on Admission: Efrem Bhatti MD Consults: 02/16/25 14:54 Referral Routine Comment: Attending Provider on DC: Efrem Bhatti MD Discharging Provider: Efrem Bhatti MD DS: Diagnosis Discharge Diagnosis (1) delivery delivered: Status: Acute Problem List Completed Was Problem List Reviewed/Reconciled?: Yes Summary/Hosp Course Brief History: Patient is a 39-year-old -0-1-2 at 39 weeks who presents for scheduled induction of labor. She she is status post vaginal delivery x 2 in the past, the last baby was born in 2012. She had a termination in 2022. [facility] She was scheduled for an induction of labor today for gestational diabetes requiring insulin and AMA. The patient is also morbidly obese with a BMI of 42. The patient was positive for methamphetamines on her first visit at about 9 or [facility] at [facility]. A drug screen is pending. Peripartum Data Delivery Method: Low Transverse Procedures: Procedures Operation Date: 02/16/25 14:15 Actual Procedure Side Surgeon p in OB Not Applicable Catalina Lazar ([facility])MD Time Spent with Patient Time attestation: Total time spent providing and/or coordinating discharge services: Exam Vital Signs Temp Pulse Resp BP Pulse Ox O2 Del Method 98 F 88 18 118/77 98 Room Air 02/18/25 08:50 02/18/25 09:01 02/18/25 08:50 02/18/25 09:01 02/18/25 08:50 02/18/25 08:50 Discharge Plan Plan Patient Disposition: HOME (Self Care) Patient condition on transfer: Stable Prescriptions/Referrals Prescriptions/Med Rec: New insulin glargine [Lantus U-100 Insulin] 100 unit/mL Solution 10 unit SCi QDAY 30 Days Qty: 3 0RF hydromorphone [Dilaudid] 2 mg tablet 2 mg PO Q6H MDD 4 PRN (Reason: pain) 5 Days Qty: 20 0RF docusate sodium [Stool Softener] 100 mg capsule 100 mg PO QDAY 30 Days Qty: 30 0RF Continued nifedipine 30 mg tablet extended release 30 mg PO QDAY 30 Days Qty: 30 0RF Vitamin 27 mg iron- 800 mcg tablet 1 tab PO QDAY folic acid 1 mg tablet 1 mg PO QDAY Referrals: No Primary/Family,Physician [Primary Care Provider] - [facility] ([facility]),Catalina Shearer MD [Physician] - Patient/Caregiver Discharge Instructions Meds to Beds: Yes Discharge Activity: activity as tolerated Education Materials: C Section Dc, After a Print Language: Swedish Stand Alone Forms: Lori Award Info., Patient Portal Info Letter, DC from Surgery Planned Discharge Date 02/18/25
== END 2025-02-18 14:50 | disposition home or self-care (01) | DRG 540 ==
LOC: S4SX 16:55 → S4NX 02-16 14:25
PROVIDERS: Admitting Provider Obstetrics & Gynecology; Visit Provider Obstetrics & Gynecology
PROC: 10D00Z1 Extraction of Products of Conception, Low, Open Approach (ICD-10-PCS; CPT 59514; principal; 2025-02-16 14:00)
DX: O24.424 Gestational diabetes mellitus in childbirth, insulin controlled (principal); Z37.0 Single live birth; Z3A.39 39 weeks gestation of pregnancy; O99.824 Streptococcus B carrier state complicating childbirth; O99.214 Obesity complicating childbirth; E66.01 Morbid (severe) obesity due to excess calories; O16.4 Unspecified maternal hypertension, complicating childbirth; O62.0 Primary inadequate contractions; O32.8XX0 Maternal care for other malpresentation of fetus, not applicable or unspecified
CPT/HCPCS: 36415; 59025; 76815; 76819; 80048; 80053; 80307; 81001; 82570; 83605; 84156; 84550; 85025; 85384; 85610; 85730; 86780; 86850; 86900; 86901; 86923; 94762; A4314; A4649; J0131; J0290; J0689; J1171; J1650; J1815; J1885; J2371; J2405; J2590; J2795; J3010; J3490; J7050; J7120; A9270